=== PATIENT | male | born 1995 | race African-American/Black ===

== ENCOUNTER 2017-02-19 18:37 | Emergency (ER) | payer MEDICAID ==
[~2017-02-19] VITALS: Ht 172.7 cm; Wt 78.9 kg
[2017-02-19 19:30] VITALS: BP 109/70
[2017-02-19] MEDS ORDERED: Augmentin 875mg Tab ORAL ONE (20:00)
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
[2017-02-19] MEDS ORDERED: IBUPROFEN600 MG ORAL (20:21)
[2017-02-19] MEDS ORDERED: AUGMENTIN 500-1 EACH ORAL (20:21)
[2017-02-19 20:25] VITALS: BP 109/70
--- NOTE | 2017-02-20 10:27 | Diagnostic Imaging Report ---
Indications: Right hip pain Technique: 3 views of the right hand. Findings: Comparison: None. Dorsal soft tissues mildly swollen. No fracture, dislocation, lytic destruction, periosteal reaction, surrounding soft tissue gas or foreign body, or other acute changes are demonstrated. No deformity, alignment abnormality, arthritic change, soft tissue calcification, or other chronic changes are demonstrated. IMPRESSION: Dorsal soft tissue swelling, nonspecific Otherwise negative right hand series.
== END 2017-02-19 20:25 | disposition home or self-care (01) ==
LOC: EMR 19:05
DX: S61.451A Open bite of right hand, initial encounter (principal); S61.411A Laceration without foreign body of right hand, initial encounter; Y04.1XXA Assault by human bite, initial encounter; Y93.9 Activity, unspecified; Y99.9 Unspecified external cause status; M25.641 Stiffness of right hand, not elsewhere classified; Z91.010 Allergy to peanuts; J45.909 Unspecified asthma, uncomplicated
CPT/HCPCS: 99284

== ENCOUNTER 2019-06-11 00:38 | Emergency (ER) | payer MEDICAID ==
[~2019-06-11] VITALS: Ht 172.7 cm; Wt 78.9 kg
[~2019-06-11 00:38] MED LIST: AUGMENTIN 500-1 EACH ORAL; IBUPROFEN600 MG ORAL
[2019-06-11] MEDS ORDERED: NKM (00:44)
[2019-06-11 00:46] VITALS: BP 120/76
--- NOTE | 2019-06-11 00:46 | NUR ---
ED Nurse Note: pt walked in to ED C/O irritation when urinating. The S/Sx has started since thursday. denies penile dishcrage. VSS
--- NOTE | 2019-06-11 00:55 | NUR ---
ED Nurse Note: urine sample sent to lab
[2019-06-11 01:00] LABS: APPEARANCE,URINE CLEAR; BILIRUBIN, URINE NEGATIVE (NEGATIVE); COLOR,URINE PALE YELLOW; GLUCOSE, URINE (UA) NEGATIVE (NEGATIVE); KETONES,URINE NEGATIVE (NEGATIVE); LEUKOCYTE ESTERASE ,URINE NEGATIVE (NEGATIVE); NITRITE,URINE NEGATIVE (NEGATIVE); PH,URINE 5 (4.5-8.0); PROTEIN,URINE NEGATIVE (NEGATIVE); UROBILINOGEN,URINE NORMAL MG/DL (0.0-1.0)
[2019-06-11] MEDS ORDERED: VALACYCLOVIR1000 MG ORAL (01:49)
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
--- NOTE | 2019-06-11 02:00 | NUR ---
ED Nurse Note: blood work sent down to lab
[2019-06-11 02:06] VITALS: BP 118/80
--- NOTE | 2019-06-11 02:06 | NUR ---
ER DISCHARGE NOTE: Patient is cleared to be discharged per ERMD, pt is aox4, on room air, with stable vital signs. pt was given dc and prescription instructions, pt was able to verbalize understanding, pt id band removed without complications. pt is able to ambulate with steady gait. pt took all belongings.
== END 2019-06-11 02:10 | disposition home or self-care (01) ==
LOC: EMR 01:10
DX: L98.499 Non-pressure chronic ulcer of skin of other sites with unspecified severity (principal); J45.909 Unspecified asthma, uncomplicated; Z91.010 Allergy to peanuts
CPT/HCPCS: 81003; 86703; 87491; 87590; 99283

== ENCOUNTER 2020-03-10 09:23 | Emergency (ER) | payer MEDICAID ==
[~2020-03-10] VITALS: Ht 172.7 cm; Wt 77.1 kg
[~2020-03-10 09:23] MED LIST changes: +NKM; +VALACYCLOVIR1000 MG ORAL
[2020-03-10 09:29] VITALS: BP 131/84
[2020-03-10] MEDS ORDERED: VALACYCLOVIR1000 MG ORAL (09:43)
[2020-03-10] MEDS ORDERED: metroNIDAZOLE 500mg tab ORAL ONE (09:45)
[2020-03-10] MEDS ORDERED: Azithromycin 250mg tab ORAL ONE (09:45)
[2020-03-10] MEDS ORDERED: Lidocaine 1% MPF 10mg/ml 5ml INJ ONE (09:45)
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
[2020-03-10 09:54] VITALS: BP 128/85
== END 2020-03-10 09:54 | disposition home or self-care (01) ==
LOC: EMR 09:41
DX: R21 Rash and other nonspecific skin eruption (principal); Z20.2 Contact with and (suspected) exposure to infections with a predominantly sexual mode of transmission; Z91.010 Allergy to peanuts
CPT/HCPCS: 96372; J0696; Q0144; Z7502; 99283

== ENCOUNTER 2020-04-30 01:07 | Emergency (ER) | payer MEDICAID ==
[~2020-04-30] VITALS: Ht 170.2 cm; Wt 79.4 kg
[2020-04-30 01:19] VITALS: BP 118/76
[2020-04-30] MEDS ORDERED: IBUPROFEN600 M1 ORAL (01:43)
[2020-04-30] MEDS ORDERED: AUGMENTIN 875-1 EAC1 ORAL (01:43)
[2020-04-30] MEDS ORDERED: Augmentin 875mg Tab ORAL ONE (01:45)
[2020-04-30] MEDS ORDERED: Bacitracin Oint UD TOPIC ONE (01:45)
[2020-04-30 02:52] VITALS: BP 123/76
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
== END 2020-04-30 02:52 | disposition home or self-care (01) ==
LOC: EMR 01:33
DX: S01.85XA Open bite of other part of head, initial encounter (principal); W50.3XXA Accidental bite by another person, initial encounter; Y92.9 Unspecified place or not applicable; Z91.010 Allergy to peanuts
CPT/HCPCS: 99282

== ENCOUNTER 2020-08-13 12:06 | Emergency (ER) | payer SELFPAY ==
[~2020-08-13] VITALS: Ht 170.2 cm; Wt 77.1 kg
[~2020-08-13 12:06] MED LIST changes: +AUGMENTIN 875-1 EAC1 ORAL; +IBUPROFEN600 M1 ORAL
[2020-08-13] MEDS ORDERED: PREDNISONE20 MG ORAL (12:42)
[2020-08-13] MEDS ORDERED: BENADRYL ALLERG25 M1 PO (12:42)
[2020-08-13] MEDS ORDERED: DiphenhydrAMINE 50mg/ml Inj IM ONE (12:45)
--- NOTE | 2020-08-13 12:50 | NUR ---
ED Nurse Note: Pt cleared by health care Provider for discharge. DC instructions/prescription was given and explained to pt and verbalized understanding of teachings. All medical deviecs such as ID band removed. Pt is AAO x4, ambulatory and left with all personal belongings.
[2020-08-13 14:53] VITALS: BP 129/79
--- NOTE | 2020-08-13 15:00 | Emergency Room Report ---
History of Present Illness General Chief Complaint: Allergic Reaction Source: Patient Present Illness HPI Disclaimer: Please note that this report is being documented using [employer] technology. This can lead to erroneous entry secondary to incorrect interpretation by the dictating instrument. HPI: 25-year-old male presents with possible allergic reaction. He states he ate some vegan food and now is having an itchy throat he denies any shortness of breath nausea vomiting diarrhea or pain. Denies any rash. He has an allergy to nuts. No history of anaphylaxis and does not require use of EpiPen. Allergies: Coded Allergies: No Known Allergies (Verified , 09/15/11) Uncoded Allergies: PEANUTS (Allergy, Severe, ANAPHYLACTIC SHOCK, 09/15/11) COVID-19 Screening Contact w/high risk pt: No Recent Travel to affected area: No Experienced COVID-19 symptoms?: No COVID-19 Testing performed INDUCTION FURNACE OPERATOR: No Patient History Reviewed Nursing Documentation: PMH: Agreed; PSxH: Agreed Nursing Documentation-PMH Past Medical History: No History, Except For Hx Asthma: Yes Review of Systems All Other Systems: negative except mentioned in HPI Physical Exam Vital Signs Date Time Temp Pulse Resp B/P (MAP) Pulse Ox O2 Delivery O2 Flow Rate FiO2 08/13/20 12:10 97.7 63 19 129/79 (96) 100 Room Air Sp02 EP Interpretation: reviewed, normal General Appearance: well appearing, no apparent distress Head: normocephalic, atraumatic Eyes: bilateral eye PERRL, bilateral eye EOMI ENT: hearing grossly normal, moist mucus membranes, other - No oral edema noted Neck: full range of motion, supple Respiratory: lungs clear, normal breath sounds, no rhonchi, no respiratory distress, no retraction, no wheezing Cardiovascular #1: normal peripheral pulses, regular rate, rhythm, no murmur Gastrointestinal: non tender, soft, non-distended, no guarding Neurologic: alert, oriented x3, no focal defects Skin: normal color, warm/dry Medical Decision Making Diagnostic Impression: Primary Impression: Allergic reaction ER Course MDM: Patient presented for acute allergic reaction. Do suspect mild allergy to food. No oral edema no respiratory distress no urticaria. Patient was given Benadryl, prednisone, will be discharged with the same. He was in no acute distress, low suspicion for anaphylaxis. Stable for discharge. Last Vital Signs Date Time Temp Pulse Resp B/P (MAP) Pulse Ox O2 Delivery O2 Flow Rate FiO2 08/13/20 12:10 97.7 63 19 129/79 (96) 100 Room Air Disposition: HOME, SELF-CARE Condition: Stable Scripts Diphenhydramine Hcl (BENADRYL ALLERGY) 25 Mg Tablet 50 MG PO EVERY 6 HOURS, #60 TAB Prov: Scottie Tran M.D. 08/13/20 Prednisone* (PREDNISONE*) 20 Mg Tablet 40 MG ORAL DAILY, #10 TAB Prov: Scottie Tran M.D. 08/13/20 Referrals: [facility] Patient Instructions: Food Allergy, [id number] Additional Instructions: Patient is instructed to follow-up with her primary care doctor, primary care clinic or [facility] in 1 to 2 days. Patient instructed to return for any worsening symptoms or concerns. Scottie Tran M.D. Aug 13, 2020 14:59
== END 2020-08-13 13:00 | disposition home or self-care (01) ==
LOC: EMR 12:36
DX: T78.40XA Allergy, unspecified, initial encounter (principal); X58.XXXA Exposure to other specified factors, initial encounter; Y92.9 Unspecified place or not applicable; Z91.010 Allergy to peanuts
CPT/HCPCS: 96372; 99282; J1200; J7512